=== PATIENT | female | born 1970 | race Caucasian/White ===

== ENCOUNTER 2018-02-27 17:52 | Emergency (ER) | payer OTHER ==
[2018-02-27] MEDS: ONDANSETRON PF 4 MG/2 ML VIAL. IV (19:06)
[2018-02-27] MEDS: fentaNYL PF VIAL 100 MCG/2 ML VIAL IV (19:06)
[2018-02-27] MEDS: HYDROcodone/APAP 10/325 1 TAB TABLET PO (20:20)
[2018-02-27] MEDS: ONDANSETRON ODT 4 MG TAB.RAPDIS. PO (20:20)
== END 2018-02-27 20:56 | disposition home or self-care (01) ==
LOC: ER 17:52
DX: S16.1XXA Strain of muscle, fascia and tendon at neck level, initial encounter (principal); M54.16 Radiculopathy, lumbar region; I10 Essential (primary) hypertension; Z79.891 Long term (current) use of opiate analgesic; Z90.710 Acquired absence of both cervix and uterus; Z79.899 Other long term (current) drug therapy; Z88.2 Allergy status to sulfonamides; Z88.5 Allergy status to narcotic agent; V43.52XA Car driver injured in collision with other type car in traffic accident, initial encounter; Y93.89 Activity, other specified; Y92.410 Unspecified street and highway as the place of occurrence of the external cause; Y99.8 Other external cause status
CPT/HCPCS: 72125; 72131; 96374; 96375; 99284; J2405; J3010; Q0162